=== PATIENT | female | born 2000 | race Two or more races ===

== ENCOUNTER 2021-07-18 07:44 | Inpatient (IN) | payer SELFPAY ==
[~2021-07-18] VITALS: Ht 162.6 cm; Wt 58.9 kg
[2021-07-18] MEDS ORDERED: IV RINGERS,LACTATED 1000ML 1,000 ML IV SCH (08:15)
[2021-07-18] MEDS ORDERED: BUTORPHANOL 2 MG/ML VIAL. IVP PRN ×2 (08:15)
[2021-07-18] MEDS ORDERED: TERBUTALINE 1 MG/ML VIAL. SQ PRN (08:15)
[2021-07-18] MEDS ORDERED: ACETAMINOPHEN 325 MG TABLET. PO PRN ×2 (08:15→17:00)
[2021-07-18] MEDS ORDERED: OXYTOCIN 30 UNIT/500 ML PREMIX 500 ML IV PRN ×3 (08:15→17:00)
[2021-07-18] MEDS ORDERED: 0.9 % SODIUM CHLORIDE 10 ML DISP.SYRIN. IV PRN ×2 (08:15→17:00)
[2021-07-18] MEDS ORDERED: LIDOCAINE 1% PF 30 ML VIAL. INJ PRN (08:15)
[2021-07-18 08:50] VITALS: BP 143/86
[2021-07-18] MEDS ORDERED: OXYTOCIN PREMIX 30 UNIT/500 ML NS BAG. IV ONE (09:15)
[2021-07-18 10:10] LABS: CREATININE,RANDOM URINE 14.3 mg/dL (Not Establ.)
[2021-07-18 10:11] LABS: BASO % 0 % (0-3); EOS % 0 % (0-3); HEMATOCRIT 27.1 % (36.0-47.0); HEMOGLOBIN 8.2 g/dL (12.0-15.5); LYMPH # 1.9 x10^3/uL (1.0-4.8); LYMPH % 18 % (24-48); MEAN CORPUSCULAR HEMOGLOBIN 18 pg (25-35); MEAN CORPUSCULAR HGB CONC 31 g/dL (31-37); MEAN CORPUSCULAR VOLUME 60 fL (79-100); MONO # 0.6 x10^3/uL (0.0-1.1); MONO % 6 % (0-9); NEUT # 8.1 x10^3/uL (1.8-7.7); NEUT % 76 % (31-73); PLATELET COUNT 233 x10^3/uL (140-400); RED BLOOD COUNT 4.54 x10^6/uL (3.50-5.40); RED CELL DISTRIBUTION WIDTH 17.3 % (11.5-14.5); WHITE BLOOD COUNT 10.6 x10^3/uL (4.0-11.0)
[2021-07-18 10:12] LABS: BARBITURATES NEG (NEG); BENZODIAZEPINES NEG (NEG); CANNABINOIDS POS (NEG); COCAINE POS (NEG); METHADONE NEG (NEG); OPIATES NEG (NEG); PHENCYCLIDINE NEG (NEG)
[2021-07-18 10:18] LABS: AMPHETAMINE/METHAMPHETAMINE NEG (NEG)
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
--- NOTE | 2021-07-18 10:30 | PDOC4 ---
VAGINAL DELIVERY DATE DATE: 07/18/21 TIME: 10:30 TIME Patient delivered a viable female over intact perineum at 0907. Wt 2935 gm. Apgars 9/9. Placenta delivered spontaneously, intact with 3VC. No lacerations noted. Good hemostasis noted. 20 U of Pit given with IVF. EBL 100 cc. WEIGHT Weight [ ] BELKIS KENNEDY MD Jul 18, 2021 10:30
[2021-07-18 10:32] LABS: URIC ACID 4.3 mg/dL (2.6-6.0)
[2021-07-18 11:31] LABS: HYPOCHROMIA PRESENT; MICROCYTOSIS PRESENT
[2021-07-18 11:32] LABS: PLT ESTIMATE ADEQUATE (ADEQUATE)
[2021-07-18 12:17] LABS: ALBUMIN 2.7 g/dL (3.4-5.0); ALBUMIN/GLOBULIN RATIO 0.8 (1.0-1.7); CALCIUM 8.5 mg/dL (8.5-10.1); CREATININE 0.5 mg/dL (0.6-1.0); GFR 154.3; POTASSIUM 3.6 mmol/L (3.5-5.1); TOTAL BILIRUBIN 0.2 mg/dL (0.2-1.0); TOTAL PROTEIN 6.2 g/dL (6.4-8.2)
[2021-07-18 12:38] VITALS: BP 114/66
[2021-07-18] MEDS ORDERED: SIMETHICONE 80 MG TAB.CHEW PO PRN (17:00)
[2021-07-18] MEDS ORDERED: MAGNESIUM HYDROXIDE 2,400 MG/30 ML ORAL.SUSP. PO PRN (17:00)
[2021-07-18] MEDS ORDERED: DOCUSATE SODIUM 100 MG CAPSULE. PO PRN (17:00)
[2021-07-18] MEDS ORDERED: diphenhydrAMINE HCL 25 MG CAPSULE PO PRN (17:00)
[2021-07-18] MEDS ORDERED: BENZOCAINE 20% TOPICAL AEROSOL SPRAY 57GM CAN. TP PRN (17:00)
[2021-07-18] MEDS ORDERED: MAG HYDROX/ALUMINUM HYD/SIMETH 30 ML ORAL.SUSP PO PRN (17:00)
[2021-07-18] MEDS ORDERED: HYDROCORTISONE 1% TOPICAL OINTMENT 30GM TUBE. TP PRN (17:00)
[2021-07-18] MEDS ORDERED: PHENYLEPH/MINERAL OIL/PETROLAT RECTAL OINTMENT TUBE. RC PRN (17:00)
[2021-07-18] MEDS ORDERED: TDaP (Adacel) per PROTOCOL. MC PRN (17:00)
[2021-07-18] MEDS ORDERED: MMR per PROTOCOL. MC PRN (17:00)
[2021-07-18 17:43] VITALS: BP 127/80
[2021-07-18] MEDS: IBUPROFEN 400 MG TABLET. PO SCH (21:12)
[2021-07-18 21:58] VITALS: BP 132/76
[2021-07-19 06:06] VITALS: BP 105/65
[2021-07-19] MEDS ORDERED: FERROUS SULFATE 325 MG TABLET. PO SCH (08:00)
[2021-07-19] MEDS: IBUPROFEN 400 MG TABLET. PO SCH (08:55)
[2021-07-19 09:00] VITALS: BP 122/81
[2021-07-19] MEDS ORDERED: MULTIVITAMIN with MINERAL TABLET. PO SCH (09:00)
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
[2021-07-19] MEDS ORDERED: FERR325T14 PO (10:51)
[2021-07-19] MEDS ORDERED: IBUP-1060 PO (10:51)
[2021-07-19] MEDS ORDERED: DOCU-109 PO (10:51)
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
[2021-07-19 11:13] LABS: BASO % 0 % (0-3); EOS # 0.1 x10^3/uL (0.0-0.7); EOS % 1 % (0-3); HEMATOCRIT 25.4 % (36.0-47.0); HEMOGLOBIN 7.6 g/dL (12.0-15.5); LYMPH # 3.3 x10^3/uL (1.0-4.8); LYMPH % 39 % (24-48); MEAN CORPUSCULAR HEMOGLOBIN 18 pg (25-35); MEAN CORPUSCULAR HGB CONC 30 g/dL (31-37); MEAN CORPUSCULAR VOLUME 60 fL (79-100); MONO # 0.7 x10^3/uL (0.0-1.1); MONO % 8 % (0-9); NEUT # 4.5 x10^3/uL (1.8-7.7); NEUT % 53 % (31-73); PLATELET COUNT 214 x10^3/uL (140-400); RED BLOOD COUNT 4.19 x10^6/uL (3.50-5.40); RED CELL DISTRIBUTION WIDTH 17.4 % (11.5-14.5); WHITE BLOOD COUNT 8.5 x10^3/uL (4.0-11.0)
[2021-07-19 17:02] VITALS: BP 141/95
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
--- NOTE | 2021-07-21 09:08 | PATHOLOGY ---
[facility] Accession Number: [id number] . 01 Material submitted: . placenta - CORD AND PLACENTA . 01 Clinical history: . INTRAUTERINE , CASSIDY GESTATION , FEMALE INFANT @0907 . 02 Diagnosis: 527 gram term placenta of an estimated 39 weeks gestation with attached umbilical cord and detached segment of umbilical cord and membranes: - Few subamniotic pigmented macrophages consistent with meconium staining. - Small focus of retroplacental hemorrhage with focal decidual and villous necrosis. - Chorangiosis, focal. (SADIM:kate; 07/20/2021) [facility] 07/21/2021 0853 Local . 02 Comment: There is no evidence of an acute chorioamnionitis or villitis. (SADIM:kate; 07/20/2021) . 02 Electronically signed: . Jose David Cui MD, Pathologist NPI- [id number] . 01 Gross description: . Fixative: Formalin Labeled: Per the specimen container: Placenta; per the requisition: Cord and placenta Specimen received: An intact cassidy placenta with umbilical cord and without attached membranes. An additional segment of umbilical cord is identified. A portion of membrane is identified. Dimensions: 17.0 x 6.5 x 3.0 cm. membranes appearance: Morelos and semitranslucent membrane rupture: Cannot be determined due to membrane detachment from disc membrane insertion: Cannot be determined due to membrane detachment from disc Umbilical cord: 18.0 cm (attached to disc) and 18.5 cm (additional segment) in length, ranges from 1.1-1.5 cm in diameter Umbilical cord insertion: Peripheral, 3.0 cm from the closest placental margin Number of umbilical vessels: 3 Umbilical cord appearance: Morelos-white and gelatinous with 5 spirals per 10 cm Trimmed placental weight: 527 g surface: Blue-woodward with areas of green meconium staining, the disc appears well vascularized. Maternal surface: Red-brown and rubbery with intact cotyledons which appear entirely present Abnormalities: None identified . Glue Maker Bone sections are submitted as follows: A1 proximal and distal umbilical cord and membranes, rolled A2 underwriting account representative peripheral placenta, full-thickness section A3 underwriting account representative central placenta, full-thickness section A4 additional maternal surface (MRF; 07/19/2021) [facility] 07/20/2021 1631 Local . 02 Pathologist provided ICD-10: O43.893, Z37.0, Z3A.39 . 02 CPT . 847253 Specimen Comment: A courtesy copy of this report has been sent to [phone] Specimen Comment: Report sent to Performed at: 01 [facility] [address], [place] [id number] MD Walker Mcginnis MD Phone: [phone] Performed at: 02 [facility] [address], [place] [id number] MD Jose David Cui MD Phone: [phone]
== END 2021-07-19 17:15 | disposition home or self-care (01) | DRG 807 ==
LOC: 3 SO LND 07:44 → OBSVTOIN 08:18
PROVIDERS: ADMIT Obstetrics & Gynecology; ATTEND Obstetrics & Gynecology
PROC: 10E0XZZ Delivery of Products of Conception, External Approach (ICD-10-PCS; principal; 2021-07-18)
DX: O13.4 Gestational [pregnancy-induced] hypertension without significant proteinuria, complicating childbirth (principal); Z37.0 Single live birth; O14.94 Unspecified pre-eclampsia, complicating childbirth; O36.8330 Maternal care for abnormalities of the fetal heart rate or rhythm, third trimester, not applicable or unspecified; O77.0 Labor and delivery complicated by meconium in amniotic fluid; Z3A.32 32 weeks gestation of pregnancy; Z20.822 Contact with and (suspected) exposure to COVID-19; O90.81 Anemia of the puerperium; D64.9 Anemia, unspecified
CPT/HCPCS: 36415; 80053; 80307; 82570; 83615; 84156; 84550; 85025; 86592; 86703; 86762; 86803; 86850; 86900; 86901; 87340; 87426; G0379; J0595; J2590; U0003; U0005; G0378